=== PATIENT | male | born 1990 ===

== ENCOUNTER 2019-07-28 06:23 | Emergency (ER) | payer SELFPAY ==
[2019-07-28] VITALS (8 sets, daily range): BP systolic 118–129; BP diastolic 71–87; PULSE 56–71; RESP 14–20; TEMP 37.2; O2SAT 95–100
--- NOTE | 2019-07-28 06:44 | W.ED.GENAD ---
Discharge Plan Disposition Patient Disposition: HOME Condition: Good Discharge Details Chief Complaint: OD/Poison Clinical Impression: Nausea & vomiting Primary Care Provider: None,None ED Provider: Santosh Calles Home Meds and New Rx's Prescriptions: New ondansetron HCl [Zofran] 4 mg tablet 4 mg PO Q8H Qty: 14 RF: 0 Discharge Instructions Instructions: Acute Nausea and Vomiting (ED) Additional Instructions: At this time I feel your symptoms are likely secondary to a virus or irritation from the crack or alcohol. Please avoid any greasy spicy fatty foods. Stick with a bland diet of bread, rice, applesauce, and crackers or soup. Take the Zofran every 4-6 hours as needed. Please follow closely with your defensive line coach. If you notice any worsening of your symptoms, or any new symptoms such as vomiting, diarrhea, fever, chills, shortness of breath, chest pain, numbness, weakness, or fainting , please return immediately to the emergency department for reevaluation. Please follow up with your primary care provider as soon as possible for reassessment and reevaluation. As always, it was a pleasure participating in your medical care today. Medical Decision Making 28-year-old male with past medical history of previous crack abuse, who presents today for evaluation of nausea and vomiting. Patient was sober for the last 3 months, and then last night patient went to a friend's house, did some crack, drank 3 tall boys, then this morning had nausea and few episodes of vomiting. Vomiting had yellow in it, no blood. He has not been able to keep anything down. She denies any other sick contacts. He denies any abdominal pain whatsoever but does admit to the mild continued nausea. He denies hematemesis, cough, fever, shortness of breath. He denies any numbness tingling or weakness. He has no other complaints at this time. No other modifying factors. Girlfriend is at bedside and is otherwise asymptomatic. Physical exam demonstrates no abdominal tenderness, no signs of an acute surgical abdomen whatsoever. Signs and symptoms are concerning for gastroenteritis. Suspect viral etiology, likely worsened by recent alcohol and crack cocaine use. Discussed labs versus conservative therapy with Zofran and p.o. trial, patient is preferring the latter. We discussed risks and benefits of this, and the patient understands and accepts. The patient also states that he would like to discuss his scenario with the defensive line coach, when this was offered. We will contact them. We will give Zofran and reassess. HPI General Date/Time Provider Initiated Documentation: 07/28/19 06:35. HPI Narrative: 28-year-old male with past medical history of previous crack abuse, who presents today for evaluation of nausea and vomiting. Patient was sober for the last 3 months, and then last night patient went to a friend's house, did some crack, drank 3 tall boys, then this morning had nausea and few episodes of vomiting. Vomiting had yellow in it, no blood. He has not been able to keep anything down. She denies any other sick contacts. He denies any abdominal pain whatsoever but does admit to the mild continued nausea. He denies hematemesis, cough, fever, shortness of breath. He denies any numbness tingling or weakness. He has no other complaints at this time. No other modifying factors. Girlfriend is at bedside and is otherwise asymptomatic. Related Data Home Medications Medication Instructions Recorded Confirmed ondansetron HCl [Zofran] 4 mg PO Q8H #14 tab 07/28/19 Previous Rx's Medication Instructions Recorded ondansetron HCl [Zofran] 4 mg PO Q8H #14 tab 07/28/19 General Stated Complaint: OD/Poison RAMSEY: 3 Review of Systems All systems reviewed & are unremarkable except as noted in HPI and below PFSH Social History (Updated 03/19/19 @ 12:02 by Laurence Boyer) Smoking/Tobacco Use Status: Current every day Tobacco Type: cigarettes Tobacco: How many years used: 15 Alcohol Intake: current Alcohol type: beer Drug use: Occasionally Substance use type: crack/cocaine Details: No IV Drug Use Adopted: No Caregiver/Support person: No Foster care: No Household members: none Do you need help understanding health information?: Rarely Sexually active: Yes Do you think of yourself as: straight/heterosexual Current gender identity: male Do you feel safe at home: Yes Do you feel safe in your relationship?: Yes Exam Narrative Exam Narrative: 1.Const: Well-nourished, Well-developed, appearing stated age 2.Eyes: PERRL, no conjunctival injection, and symmetrical lids. 3.ENT: Atraumatic external nose and ears. dry MM. Neck: Symmetric, trachea midline, No thyromegaly. 4.CVS: +S1/S2, No murmurs or gallops. Peripheral pulses 2+ and equal in all extremities. Brisk capillary refill in all extremities. 5.RESP: Unlabored respiratory effort. Clear to auscultation bilaterally. No wheezes rales or rhonchi 6.GI: Soft, Nontender/Nondistended, No hepatosplenomegaly. No guarding or rebound. No pain at McBurney's point, negative Burch sign. 7.MSK: Normocephalic/Atraumatic, Extremities w/o deformity or ttp No cyanosis or clubbing, Normal movement of all extremities 8.Skin: Warm, Dry. No rashes or lesions. 9.Neuro: product support analyst II-XII grossly intact. Sensation grossly intact, no focal neurologic deficits. 10.Psych: (AAO) x3. Appropriate mood and affect Course Vital Signs Vital signs: Vital Signs Temperature 37.2 C 07/28/19 06:30 Pulse 68 07/28/19 06:30 Respiratory Rate 20 07/28/19 06:30 Blood Pressure 126/80 07/28/19 06:30 Pulse Oximetry 100 07/28/19 06:30 Temperature 37.2 C 07/28/19 06:30 Temperature Source Skin 07/28/19 06:30 Pulse 68 07/28/19 06:30 Respiratory Rate 20 07/28/19 06:30 Respiratory Effort 07/28/19 06:34 Respiratory Depth Normal 07/28/19 06:34 Respiratory Pattern Normal 07/28/19 06:34 Blood Pressure 126/80 07/28/19 06:30 Pulse Oximetry 100 07/28/19 06:30 Oxygen Delivery Method Room Air 07/28/19 06:30 Oxygen Flow Rate 0 07/28/19 06:30 Pain Level 0 07/28/19 06:30
[2019-07-28] MEDS: Ondansetron O.D.T. 4 MG TABEF PO (06:50)
== END 2019-07-28 07:48 | disposition home or self-care (01) ==
LOC: ER 07:56
PROVIDERS: Emergency Provider Student in an Organized Health Care Education/Training Program
DX: R11.2 Nausea with vomiting, unspecified (principal); F14.10 Cocaine abuse, uncomplicated
CPT/HCPCS: 99283

== ENCOUNTER 2020-09-13 19:57 | Emergency (ER) | payer SELFPAY ==
[2020-09-13 20:02] VITALS: BP 152/95; PULSE 71; RESP 16; TEMP 36.5; O2SAT 98
--- NOTE | 2020-09-13 20:12 | W.ED.GENAD ---
Discharge Plan Disposition Patient Disposition: HOME Condition: Stable Discharge Details Clinical Impression: Pain, rectal Primary Care Provider: None,None ED Provider: Sreekanth Youssef Home Meds and New Rx's Prescriptions: New Lidocaine Viscous 2 % solution 1 applic mucous membrane TID PRN (Reason: pain) Qty: 100 RF: 0 Continued ondansetron HCl [Zofran] 4 mg tablet 4 mg PO Q8H Qty: 14 RF: 0 Discharge Instructions Additional Instructions: try sitting in a warm bath for 20 minutes three times a day you should be contacted with an appointment with general surgery try to increase the amount of fiber in your diet if you have worsening pain, bleeding or fevers or develop abdominal pain return to the emergency department Medical Decision Making 29 yo male who states he believes he was diagnosed with crohn's 10 years ago at [facility], comes in with several days of rectal pain. Denies abdomen pain, bleeding with bowel movements, fevers, nausea or vomit. Has never had this before. HE has no abdominal tenderness, no external hemorrhoids but does have a small superficial linear tear in midline posteriorly, normal rectal tone, no internal masses and no blood when gloved finger removed with guaic negative stool. Will have him start sitz baths, lidocaine, and refer to general surgery especially if pain continues. HAs no symptoms to suggest abscess and do not feel labs or imaging indicated. Usual and customary return precautions given Differential Diagnosis Differential Diagnosis: fissure, hemorrhoid, constipation HPI General Mode of arrival: ambulatory. Date/Time Provider Initiated Documentation: 09/13/20 19:59. Limitations to Documentation: no limitations. Information obtained by: patient. History of Present Illness 29 year old M presents to the emergency department with the chief complaint of rectal pain, described as moderate, Patient started experiencing this day(s) (2) and it has been constant. No relieving factors improve symptom(s), No exacerbating factors reported . Patient notes no other symptoms.. Patient did receive the following treatments prior to arrival, none Related Data Home Medications Medication Instructions Recorded Confirmed ondansetron HCl [Zofran] 4 mg PO Q8H #14 tab 07/28/19 lidocaine HCl [Lidocaine Viscous] 1 applic MUCOUS MEMBRANE TID PRN 09/13/20 #100 ml Previous Rx's Medication Instructions Recorded ondansetron HCl [Zofran] 4 mg PO Q8H #14 tab 07/28/19 lidocaine HCl [Lidocaine Viscous] 1 applic MUCOUS MEMBRANE TID PRN 09/13/20 #100 ml Allergies Allergy/AdvReac Type Severity Reaction Status Date / Time Penicillins Allergy Unknown Other (See Unverified 09/13/20 20:06 Comment) Sulfa (Sulfonamide Allergy Unknown Other (See Unverified 09/13/20 20:06 Antibiotics) Comment) General Stated Complaint: GenMedical RAMSEY: 3 Review of Systems All systems reviewed & are unremarkable except as noted in HPI and below Constitutional Constitutional: Denies chills, Denies fever(s) and Denies weakness Cardiovascular Cardiovascular: Denies chest pain and Denies dyspnea Respiratory Respiratory: Denies cough and Denies dyspnea Gastrointestinal Gastrointestinal: Denies abdominal pain, Denies nausea and Denies vomiting Musculoskeletal Musculoskeletal: Denies joint swelling Neurologic Neurologic: Denies weakness ON LICENSE OF [facility] Social History (Updated 03/19/19 @ 12:02 by Laurence Boyer) Smoking/Tobacco Use Status: Current every day Tobacco Type: cigarettes Tobacco: How many years used: 15 Smoking risk assessment performed?: Yes Alcohol Intake: current Alcohol type: beer Drug use: Occasionally Substance use type: crack/cocaine Details: No IV Drug Use Adopted: No Caregiver/Support person: No Foster care: No Household members: none Do you need help understanding health information?: Rarely Sexually active: Yes Do you think of yourself as: straight/heterosexual Current gender identity: male Do you feel safe at home: Yes Do you feel safe in your relationship?: Yes Exam Const General: no acute distress Orientation: alert HENMT Head: normal to inspection Ears: external ears normal General nose exam: external nose normal Mouth: moist mucous membranes Eyes General: appearance normal, both eyes and all related structures Neck Neck: normal visual inspection Resp Effort & Inspection: normal respiratory effort and able to speak in complete sentences Cardio Rate: regular rate GI Palpation: soft and nontender Skin General skin exam: no rashes or lesions noted Neuro General: patient alert and patient oriented x3 Extrem General: normal to inspection Psych Mental Status: mental status grossly normal Course Vital Signs Vital signs: Vital Signs Temperature 36.5 C 09/13/20 20:02 Pulse 71 09/13/20 20:02 Respiratory Rate 16 09/13/20 20:02 Blood Pressure 152/95 H 09/13/20 20:02 Pulse Oximetry 98 09/13/20 20:02 Temperature 36.5 C 09/13/20 20:02 Temperature Source Tympanic 09/13/20 20:02 Pulse 71 09/13/20 20:02 Respiratory Rate 16 09/13/20 20:02 Respiratory Effort Non-Labored 09/13/20 20:07 Respiratory Depth Normal 09/13/20 20:07 Respiratory Pattern Normal 09/13/20 20:07 Blood Pressure 152/95 H 09/13/20 20:02 Blood Pressure Position Sitting 09/13/20 20:02 Pulse Oximetry 98 09/13/20 20:02 Oxygen Delivery Method Room Air 09/13/20 20:02 Oxygen Flow Rate 0 09/13/20 20:02 Pain Level 5 09/13/20 20:02 Comment 09/13/20 20:02
--- NOTE | 2020-09-13 20:15 | NUR.NOTE ---
Nursing Note: Referral [facility]ed [facility] for follow up of rectal pain, small anal fissure, within 1 week. Referral given to Care Management to establish care for PCP. Amanda Jimenez
== END 2020-09-13 20:25 | disposition home or self-care (01) ==
PROVIDERS: Emergency Provider Emergency Medicine
DX: K62.89 Other specified diseases of anus and rectum (principal)
CPT/HCPCS: 99283